=== PATIENT | female | born 1990 | race Caucasian/White ===

== ENCOUNTER 2021-05-11 11:47 | Outpatient (REF) | payer OTHER, SELFPAY | END 2021-05-11 11:48 | disposition home or self-care (01) | LOC: HO.LAB 11:47 | PROVIDERS: Visit Provider Internal Medicine | DX: Z20.822 Contact with and (suspected) exposure to COVID-19 (principal) | CPT/HCPCS: C9803; U0003; U0005 ==

== ENCOUNTER 2021-06-27 08:58 | Outpatient (REF) | payer OTHER, SELFPAY ==
[2021-06-27 09:24] LABS: COVID-19 Test Negative (Negative)
== END 2021-06-27 08:59 | disposition home or self-care (01) ==
LOC: HO.LAB 08:58
PROVIDERS: Visit Provider Internal Medicine
DX: Z20.822 Contact with and (suspected) exposure to COVID-19 (principal)
CPT/HCPCS: 36415; 87635; C9803

== ENCOUNTER 2021-06-30 09:28 | Outpatient (REF) | payer OTHER, SELFPAY ==
[2021-06-30 09:51] LABS: COVID-19 Test Negative (Negative)
== END 2021-06-30 09:29 | disposition home or self-care (01) ==
LOC: HO.LAB 09:28
PROVIDERS: PCP Internal Medicine; Visit Provider Internal Medicine
DX: Z20.822 Contact with and (suspected) exposure to COVID-19 (principal)
CPT/HCPCS: 36415; 87635; C9803

== ENCOUNTER 2021-07-11 09:13 | Outpatient (REF) | payer OTHER, SELFPAY | END 2021-07-11 09:14 | disposition home or self-care (01) | LOC: HO.LAB 09:13 | PROVIDERS: PCP Internal Medicine; Visit Provider Internal Medicine | DX: Z20.822 Contact with and (suspected) exposure to COVID-19 (principal) | CPT/HCPCS: C9803; U0003; U0005 ==

== ENCOUNTER 2021-07-25 08:40 | Outpatient (REF) | payer OTHER, SELFPAY ==
[2021-07-25 09:03] LABS: COVID-19 Test Negative (Negative)
== END 2021-07-25 08:41 | disposition home or self-care (01) ==
LOC: HO.LAB 08:40
PROVIDERS: Visit Provider Internal Medicine
DX: Z20.822 Contact with and (suspected) exposure to COVID-19 (principal)
CPT/HCPCS: 36415; 87635; C9803

== ENCOUNTER 2021-08-08 09:03 | Outpatient (REF) | payer OTHER, SELFPAY ==
[2021-08-08 09:42] LABS: COVID-19 Test Negative (Negative)
== END 2021-08-08 09:04 | disposition home or self-care (01) ==
LOC: HO.LAB 09:03
PROVIDERS: Visit Provider Internal Medicine
DX: Z20.822 Contact with and (suspected) exposure to COVID-19 (principal)
CPT/HCPCS: 36415; 87635; C9803

== ENCOUNTER 2021-08-22 09:15 | Outpatient (REF) | payer OTHER, SELFPAY ==
[2021-08-22 10:14] LABS: COVID-19 Test Negative (Negative); IDNOW Serial# 16C4AD1C
== END 2021-08-22 09:16 | disposition home or self-care (01) ==
LOC: HO.LAB 09:15
PROVIDERS: Visit Provider Internal Medicine
DX: Z20.822 Contact with and (suspected) exposure to COVID-19 (principal)
CPT/HCPCS: 36415; 87635; C9803

== ENCOUNTER 2021-08-29 08:48 | Outpatient (REF) | payer OTHER, SELFPAY ==
[2021-08-29 09:29] LABS: COVID-19 Test Negative (Negative)
== END 2021-08-29 08:49 | disposition home or self-care (01) ==
LOC: HO.LAB 08:48
PROVIDERS: Visit Provider Internal Medicine
DX: Z20.822 Contact with and (suspected) exposure to COVID-19 (principal)
CPT/HCPCS: 36415; 87635; C9803

== ENCOUNTER 2021-09-05 09:37 | Outpatient (REF) | payer OTHER, SELFPAY | END 2021-09-05 09:38 | disposition home or self-care (01) | LOC: HO.LAB 09:37 | PROVIDERS: Visit Provider Internal Medicine | DX: Z13.89 Encounter for screening for other disorder (principal) ==